=== PATIENT | male | born 2000 | race Two or more races ===

== ENCOUNTER 2024-09-21 10:43 | Emergency (ER) | payer OTHER ==
[~2024-09-21] VITALS: Ht 172.7 cm; Wt 68.2 kg
[2024-09-21 10:52] VITALS: BP 104/53; PULSE 84; RESP 18; TEMP 98.2; O2SAT 99
[2024-09-21] MEDS ORDERED: INSU100C6 SQ (10:55)
[2024-09-21] MEDS ORDERED: INSU100V37 SQ (10:55)
[2024-09-21] MEDS ORDERED: INSU100I3 SQ (11:31)
[2024-09-21] MEDS ORDERED: INSU200I4 SQ (11:31)
== END 2024-09-21 11:51 | disposition home or self-care (01) ==
LOC: EMS 10:43
DX: E11.9 Type 2 diabetes mellitus without complications (principal); Z76.0 Encounter for issue of repeat prescription; Z79.4 Long term (current) use of insulin; F17.210 Nicotine dependence, cigarettes, uncomplicated
CPT/HCPCS: 82962; 99282; 99406; Z7502

== ENCOUNTER 2024-10-20 12:18 | Emergency (ER) | payer OTHER ==
[~2024-10-20] VITALS: Ht 175.3 cm; Wt 68.2 kg
[~2024-10-20 12:18] MED LIST: INSU100C6 SQ; INSU100I3 SQ; INSU100V37 SQ; INSU200I4 SQ
[2024-10-20 12:31] VITALS: BP 101/58; PULSE 89; RESP 16; TEMP 98.3; O2SAT 96
[2024-10-20] MEDS: INSULIN REGULAR, HUMAN 100 UNITS/ML SQ ONE (13:08)
[2024-10-20] MEDS ORDERED: INSNOV SQ (13:09)
[2024-10-20] MEDS ORDERED: INSU200I4 SQ (13:09)
[2024-10-20 13:50] LABS: GLUCOMETER DEV NAME(LOC) ERT.6; GLUCOSE,POINT OF CARE 496 MG/DL (70-110)
== END 2024-10-20 13:43 | disposition home or self-care (01) ==
LOC: EMS 12:21
DX: E10.65 Type 1 diabetes mellitus with hyperglycemia (principal); F17.210 Nicotine dependence, cigarettes, uncomplicated; Z79.4 Long term (current) use of insulin
CPT/HCPCS: 99283; 82962; 96372; J1815

== ENCOUNTER 2025-01-02 15:29 | Emergency (ER) | payer OTHER ==
[~2025-01-02] VITALS: Ht 172.7 cm; Wt 70.5 kg
[~2025-01-02 15:29] MED LIST changes: +INSNOV SQ; -INSU100C6 SQ; -INSU100I3 SQ; -INSU100V37 SQ
[2025-01-02 15:35] VITALS: BP 129/71; PULSE 94; RESP 18; TEMP 98; O2SAT 99
== END 2025-01-02 18:49 | disposition left against medical advice (07) ==
LOC: EMS 15:29
DX: Z76.0 Encounter for issue of repeat prescription (principal); R73.9 Hyperglycemia, unspecified; Z53.21 Procedure and treatment not carried out due to patient leaving prior to being seen by health care provider
CPT/HCPCS: 82962

== ENCOUNTER 2025-01-12 10:41 | Emergency (ER) | payer OTHER ==
[~2025-01-12] VITALS: Ht 175.3 cm; Wt 66.0 kg
[2025-01-12 10:45] VITALS: BP 110/58; PULSE 94; RESP 18; TEMP 98.4; O2SAT 99
== END 2025-01-12 11:50 | disposition home or self-care (01) ==
LOC: EMS 10:41
DX: E10.65 Type 1 diabetes mellitus with hyperglycemia (principal); F17.210 Nicotine dependence, cigarettes, uncomplicated; Z79.4 Long term (current) use of insulin
CPT/HCPCS: 82962; 99283